=== PATIENT | male | born 1975 | race Caucasian/White ===

== ENCOUNTER 2016-08-09 14:37 | Emergency (ER) | payer MEDICAID, OTHER ==
[~2016-08-09] VITALS: Wt 80.0 kg
[2016-08-09] MEDS ORDERED: ONDANSETRON (ODT) 4 MG TAB ODT STA (15:39)
[2016-08-09] MEDS ORDERED: HYDROCODONE/APAP (5/325) TAB PO ONE (16:00)
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
--- NOTE | 2016-08-09 16:53 | RADRPT ---
PROCEDURE: XR right shoulder. CLINICAL INDICATION: Pain TECHNIQUE: Axillary, Internal and external rotation views of the right shoulder were performed. COMPARISON: None. FINDINGS: There is normal osseous mineralization and alignment. No acute fracture or osseous lesion is identified. There are normal joints without evidence of arthritis or dislocation. The soft tissues are unremarkable. RPTAT: AA IMPRESSION: Unremarkable right shoulder. .José Miguel Melendez MD, MD Date Time Electronically viewed and signed by .José Miguel Melendez MD, on 08/09/2016 16:52 .S/
[2016-08-09] MEDS ORDERED: HYDR-906 PO (16:58)
[2016-08-09] MEDS ORDERED: NAPR-260 PO (16:58)
[2016-08-09] MEDS ORDERED: CYCL-319 PO (16:58)
== END 2016-08-09 17:33 | disposition home or self-care (01) ==
LOC: FTE 14:37
DX: S46.911A Strain of unspecified muscle, fascia and tendon at shoulder and upper arm level, right arm, initial encounter (principal); X50.9XXA Other and unspecified overexertion or strenuous movements or postures, initial encounter; Y92.811 Bus as the place of occurrence of the external cause
CPT/HCPCS: 73030; Z7610